=== PATIENT | female | born 1965 | race Caucasian/White ===

== ENCOUNTER 2016-12-22 14:07 | Inpatient (IN) | payer BC, OTHER ==
--- NOTE | ~2016-12-22 | EKG ---
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 : 1965 Requested By: Andrews Auguste Order Number: [id number] MD: Andrews Auguste Measurements Intervals [place] Rate: 70 P: 51 MS: 158 QRS: 7 QRSD: 104 T: 30 QT: 406 QTc: 439 Interpretive Statements Sinus rhythm Probable left ventricular hypertrophy Compared to ECG 05/14/2016 14:42:30 T-wave abnormality no longer present Electronically Signed On 12-23-2016 9:26:44 CDT by Andrews Auguste [email or web address] <ELECTRONICALLY SIGNED> By: Andrews Auguste MD, [facility] 12/23/16 0926 1645 Andrews Auguste MD, [facility] /EPI
--- NOTE | ~2016-12-22 | HC ---
[facility] [place] [address] CONSULTATION Name: LORRIE MACK Room #: 315-P [facility] IN M.R.#: [id number] Admission: 12/22/16 Attend Phys: Sanju Tracy DO Discharge: Date of : 67 Report #: [id number] THIS REPORT FOR: //name// CC: Sanju Ma REASON FOR CONSULTATION: Bright red blood per rectum, hematuria. HISTORY OF PRESENT ILLNESS: The patient is a 51-year-old woman with a history of remote pulmonary vein isolation for paroxysmal atrial fibrillation. She has a history of a stroke earlier in the year. She has been maintained on Eliquis. About 10 days ago, she noticed blood in her urine. She was empirically placed on antibiotics for urinary tract infection. This symptom became much more prominent and she was seen in the Emergency Department on Friday where a CT scan was performed. This demonstrated no acute process in the abdomen or pelvis. Her last dose of Eliquis was yesterday morning. Today, she experienced bright red blood per rectum. She also described some tarry stools. She reports an upper endoscopy earlier in the year when she underwent hiatal hernia and gastric sleeve surgery. This was unremarkable. Her last colonoscopy was several years ago at which time a polyp was removed. PAST MEDICAL HISTORY: Medical records have been reviewed and include a history of a stroke; diabetes, diet controlled; an ablation at [facility] in 2014; cholecystectomy; asthma. MEDICATIONS: Include Benazepril 10 mg daily, Prozac 20 mg daily and Singulair. ALLERGIES: She is allergic to PENICILLIN, CONTRAST, IODINE, LEVAQUIN, and ATORVASTATIN. SOCIAL HISTORY: She is , nonsmoker. FAMILY HISTORY: Unremarkable for premature coronary disease. REVIEW OF SYSTEMS: All systems negative except as that noted above. PHYSICAL EXAMINATION: GENERAL: This is a pleasant woman in no distress. VITAL SIGNS: Blood pressure is 124/77, heart rate is 60 and regular. She is afebrile, 5 feet 3 inches tall, 190 pounds. HEENT: There are neither xanthelasma, subcutaneous xanthomata, oral mucosa, digital cyanosis or kyphoscoliosis present. CHEST: Clear to auscultation and percussion. CARDIOVASCULAR: Regular rate and rhythm with normal S1, S2. No murmurs or rubs. ABDOMEN: Soft and nontender. There is no rebound or guarding. EXTREMITIES: Without cyanosis, clubbing or edema. Radial pulses are 2+. [facility] [address] [place] [address] CONSULTATION Name: LORRIE MACK Room #: 315-P [facility] IN [facility]#: [id number] Admission: 12/22/16 Attend Phys: Sanju Tracy DO Discharge: Date of : 67 Report #: [id number] NEUROLOGIC: She is alert with a nonfocal exam. LABORATORY DATA: Sodium is 141, potassium 3.7, creatinine 0.7. Cholesterol 230. LDL 137. White count 4.6, hemoglobin 12, hematocrit 38, platelet count 270. IMPRESSION: 1. Hematuria. 2. Bright red blood per rectum. 3. Paroxysmal atrial fibrillation with remote pulmonary vein isolation; placement of an implantable loop recorder. 4. Stroke, probably cardioembolic treated with thrombolytic therapy. 5. Hypercoagulable condition. 6. Diabetes, dietary control. 7. Hypertension. 8. CHADS-VASc score of at least 3. RECOMMENDATIONS: 1. Urologic and GI evaluations. 2. Lifelong anticoagulant therapy is recommended, although this is now on hold until the etiology of her bleeding can be isolated. Thank you for asking me to participate in her care. <ELECTRONICALLY SIGNED> By: Andrews Auguste MD, FACC 12/24/16 1636 1600 2114 Andrews Auguste MD, FACC /nt
--- NOTE | ~2016-12-22 | S ---
[facility] [place] [address] SURGICAL PATH RPT PROCEDURE Name: LORRIE MARCELO Room #: 315-P DIS IN M.R.#: [id number] Admission: 12/22/16 Date of : 67 Discharge: 12/24/16 Report #: [id number] Path Case #: [id number] PATHOLOGY REPORT COLLECTION DATE: 12/24/2016 RECEIVED DATE: 12/25/2016 SUBMITTING PHYS: Dr. Shankar Staples OTHER PHYS: Dr. aSnju Ma SPECIMEN(S) RECEIVED: A.Small bowel bx B.Gastric bx C.Proximal colon D.Distal colon * * * * * * * * * * * * FINAL DIAGNOSIS: A. Small bowel, endoscopic biopsy: - No diagnostic abnormalities present. B. Gastric mucosa, endoscopic biopsy: - Moderate reactive gastropathy. - Negative for intestinal metaplasia or atrophy. - Negative for Helicobacter pylori. C. Large intestine, proximal colon, endoscopic biopsy: - Mild to moderate active colitis (please see comment). - Negative for dysplasia or malignancy. D. Large intestine, dstal colon and rectum, endoscopic biopsy: - Focal cryptitis along with non-specific changes in one fragment (please see comment). - Negative for dysplasia or malignancy. COMMENT: Examination of the "proximal colon" biopsy tissue shows cryptitis, markedly expanded lamina propria, as well as crypt abscesses. There is surface epithelial inflammation present. There are no areas of ulceration present. There are no granulomata, viral inclusions, or parasitic organisms present. Crypt architectural abnormalities are not identified as well. Overall, findings are suggestive of focal active colitis, either of self-limited type or other etiology. The differential diagnosis includes early inflammatory bowel disease as well as diverticulitis. The distal colon and rectum biopsy tissue shows one fragment with increased lamina propria cellularity as well as cryptitis while the other fragments appear unremarkable. It is likely that the one involved fragment may be relatively proximal as opposed to the remainder fragments. Clinical correlation is suggested. [facility] [address] [place] [address] SURGICAL PATH RPT PROCEDURE Name: MEENAKALLORRIE Room #: 315-[facility] IN [facility]#: [id number] Admission: 12/22/16 Date of : 67 Discharge: 12/24/16 Report #: [id number] Path Case #: [id number] (IUV:mgr; 12/26/2016) PATHOLOGIST: Cynthia Montanez M.D. REPORT ELECTRONICALLY SIGNED BY: Cynthia Montanez M.D. DATE/TIME: 12/26/2016 15:11 * * * * * * * * * * * * GROSS PATHOLOGY: A. Received in formalin labeled "Lorrie Marcelo, small bowel biopsy," are multiple segments of hinton soft tissue measuring 0.8 cm in aggregate dimensions and ranging from 0.2 to 0.3 cm in maximum dimension. The specimen is submitted entirely in cassette A1. B. Received in formalin labeled "Lorrie Marcelo, gastric biopsy," are multiple segments of hinton soft tissue measuring 0.5 cm in aggregate dimensions and ranging from 0.1 to 0.2 cm in maximum dimension. The specimen is submitted entirely in cassette B1. C. Received in formalin labeled "Lorrie Marcelo, proximal colon, biopsy," are multiple segments of hinton soft tissue measuring 0.8 cm in aggregate dimensions and ranging from 0.1 to 0.2 cm in maximum dimension. The specimen is submitted entirely in cassette C1. D. Received in formalin labeled "Lorrie Marcelo, distal colon and rectum," are multiple segments of hinton soft tissue measuring 0.8 cm in aggregate dimensions and ranging from 0.1 to 0.3 cm in maximum dimension. The specimen is submitted entirely in cassette D1. ([facility]; 12/25/2016) CLINICAL HISTORY: Diarrhea, gastritis, rule out sprue, rule out gastritis, rule out colitis INITIAL CPT CODE(S): A; 32651 B; 41051, 10917 C; 50090 D; 41108 Professional services performed by [facility] at [facility] [address] [facility] , [place] [address] Technical services performed by [facility] at [address] [place] [address], [facility] [address] [address]. [facility] [address] [place] [address] SURGICAL PATH RPT PROCEDURE Name: LORRIE MARCELO Room #: 315-P DIS IN M.R.#: [id number] Admission: 12/22/16 Date of : 67 Discharge: 12/24/16 Report #: [id number] Path Case #: [id number] DANNI Wagner [address] PHONE: [phone] DIRECTOR: Uriah Hedrick M.D. * * * END OF REPORT * * *
[~2016-12-22 14:07] MED LIST: ALL DAY ALLERGY10 M3 PO; ASPIR 8181 MG PO; BACTRIM DS TAB1 EACH PO; BENAZEPRIL HCL10 MG PO; CALCIUM 600 +1 EAC1 PO; CARAFATE 1 GM TA1 G1 PO; ELIQUIS5 MG PO; FIORICET 50-321 EACH PO; FLAGYL500 MG PO; FLONASE 0.05%50 MCG NASAL; GLUCOPHAGE500 MG PO; HYDROCODON-ACE1 EAC8 PO; IBUPROFEN 800800 M1 PO; NASONEX17 GM INH; NIACIN 500 MG500 M1 PO; NORCO 5-325 TA1 EACH PO; OMEPRAZOLE 20 M20 M1 PO; PERCOCET 5-3251 EACH PO; PROZAC 10 MG CA10 M1 PO; PROZAC 10 MG CA10 MG PO; SINGULAIR 10 MG10 M1 PO; SORINE 80 MG TA80 M1 PO; VASCEPA1 GM PO; VITAMIN D2000 UNIT PO; VITAMIN D35000 UNI1 PO; VITAMIN E1000 UNI3 PO; VITAMIN E400 UNIT PO; ZANTAC 150MG T150 M1 PO; ZOFRAN ODT4 MG PO
[2016-12-22 15:48] LABS: ABSOLUTE NEUTROPHILS 2.8 thou/uL (1.4-8.2); BASOPHILS 0.5 % (0.0-2.0); EOSINOPHILS 1.8 % (0.0-3.0); HEMATOCRIT 38.1 % (37.0-47.0); HEMOGLOBIN 12.7 gm/dL (12.0-15.0); LYMPHOCYTES 27.5 % (24.0-44.0); MCH 27.6 pg (26.0-34.0); MCHC 33.4 g/dL (28.0-37.0); MCV 82.5 fL (80.0-100.0); MONOCYTES 10.2 % (1.0-8.0); PLATELET COUNT 270 thou/uL (150-400); RBC 4.62 mil/uL (4.20-5.00); RDW 14.6 % (10.5-14.5); WBC 4.6 thou/uL (4.0-11.0)
[2016-12-22 15:51] LABS: MANUAL DIFF NO
[2016-12-22 16:08] LABS: CALCIUM 9.8 mg/dL (8.5-10.1); CREATININE 0.9 mg/dL (0.6-1.0); POTASSIUM 3.9 mmol/L (3.5-5.1); TOTAL BILIRUBIN 0.3 mg/dL (<0.1-1.0); TOTAL PROTEIN 7.6 g/dL (6.4-8.2)
[2016-12-22 16:44] VITALS: BP 128/81
[2016-12-22 17:23] LABS: URINE BILIRUBIN NEGATIVE (Negative); URINE BLOOD TRACE (Negative); URINE COLOR YELLOW; URINE GLUCOSE-RANDOM* NEGATIVE (Negative); URINE KETONES NEGATIVE (Negative); URINE LEUKOCYTES-REFLEX NEGATIVE (Negative); URINE PROTEIN (DIPSTICK) NEGATIVE (Negative); URINE SPECIFIC GRAVITY <= 1.005 (1.003-1.035); URINE UROBILINOGEN 0.2 E.U./dl (0.2-1.0)
[2016-12-22 18:44] LABS: PROTIME 10.6 Seconds (9.3-11.4)
[2016-12-22 19:44] VITALS: BP 119/79
[2016-12-22 23:18] VITALS: BP 128/84
[2016-12-23 03:52] VITALS: BP 130/70
[2016-12-23 03:53] LABS: HEMATOCRIT 35.1 % (37.0-47.0); HEMOGLOBIN 12.1 gm/dL (12.0-15.0); MCH 28.5 pg (26.0-34.0); MCHC 34.4 g/dL (28.0-37.0); MCV 82.9 fL (80.0-100.0); RBC 4.24 mil/uL (4.20-5.00); RDW 15.2 % (10.5-14.5); WBC 5.3 thou/uL (4.0-11.0)
[2016-12-23 08:00] VITALS: BP 115/81
[2016-12-23] MEDS ORDERED: LISINOPRIL10 MG PO (09:52)
[2016-12-23 15:18] VITALS: BP 113/68
[2016-12-23 21:00] VITALS: BP 121/84
[2016-12-24 00:30] VITALS: BP 120/79
[2016-12-24 04:30] VITALS: BP 124/76
[2016-12-24 05:45] LABS: ABSOLUTE NEUTROPHILS 3.2 thou/uL (1.4-8.2); BASOPHILS 0.4 % (0.0-2.0); CALCIUM 9.4 mg/dL (8.5-10.1); CREATININE 0.8 mg/dL (0.6-1.0); EOSINOPHILS 1.4 % (0.0-3.0); HEMATOCRIT 35.5 % (37.0-47.0); LYMPHOCYTES 31.6 % (24.0-44.0); MCH 27.9 pg (26.0-34.0); MCHC 33.9 g/dL (28.0-37.0); MCV 82.3 fL (80.0-100.0); MONOCYTES 8.7 % (1.0-8.0); PLATELET COUNT 246 thou/uL (150-400); POLYS 57.9 % (36.0-66.0); POTASSIUM 3.8 mmol/L (3.5-5.1); RBC 4.31 mil/uL (4.20-5.00); RDW 14.8 % (10.5-14.5); WBC 5.5 thou/uL (4.0-11.0)
[2016-12-24 06:11] LABS: MANUAL DIFF NO
[2016-12-24 07:26] VITALS: BP 113/79
[2016-12-24 16:28] VITALS: BP 123/72
[2016-12-24 17:58] VITALS: BP 123/72
== END 2016-12-24 18:33 | disposition home or self-care (01) | DRG 378 ==
LOC: 3N 14:07
PROVIDERS: Family Medicine; Internal Medicine
PROC: 0DB88ZX Excision of Small Intestine, Via Natural or Artificial Opening Endoscopic, Diagnostic (ICD-10-PCS; principal; 2016-12-24)
PROC: 0DBE8ZX Excision of Large Intestine, Via Natural or Artificial Opening Endoscopic, Diagnostic (ICD-10-PCS; principal; 2016-12-24)
PROC: 0DB68ZX Excision of Stomach, Via Natural or Artificial Opening Endoscopic, Diagnostic (ICD-10-PCS; principal; 2016-12-24)
DX: K92.2 Gastrointestinal hemorrhage, unspecified (principal); D68.59 Other primary thrombophilia; I48.0 Paroxysmal atrial fibrillation; E11.9 Type 2 diabetes mellitus without complications; K29.70 Gastritis, unspecified, without bleeding; J45.909 Unspecified asthma, uncomplicated; I25.10 Atherosclerotic heart disease of native coronary artery without angina pectoris; I10 Essential (primary) hypertension; R31.9 Hematuria, unspecified; Z86.73 Personal history of transient ischemic attack (TIA), and cerebral infarction without residual deficits; Z87.440 Personal history of urinary (tract) infections; Z90.49 Acquired absence of other specified parts of digestive tract; Z79.01 Long term (current) use of anticoagulants; Z79.82 Long term (current) use of aspirin; Z79.899 Other long term (current) drug therapy; Z88.1 Allergy status to other antibiotic agents; Z88.8 Allergy status to other drugs, medicaments and biological substances; Z88.0 Allergy status to penicillin; Z91.041 Radiographic dye allergy status; Z82.49 Family history of ischemic heart disease and other diseases of the circulatory system; Z82.3 Family history of stroke
CPT/HCPCS: 10795; 62110; 62900; 70005

== ENCOUNTER 2017-03-24 17:14 | Emergency (ER) | payer BC, OTHER ==
[~2017-03-24] VITALS: Ht 160 cm; Wt 77.1 kg
[~2017-03-24 17:14] MED LIST changes: +ANUSOL-HC25 MG RECTAL; +BENTYL 10 MG CA10 M1 PO; +LISINOPRIL10 MG PO; +LOPERAMIDE 2 MG2 M1 PO
[2017-03-24 17:44] LABS: URINE BILIRUBIN NEGATIVE (Negative); URINE BLOOD 1+ (Negative); URINE COLOR YELLOW; URINE GLUCOSE-RANDOM* TRACE (Negative); URINE KETONES NEGATIVE (Negative); URINE LEUKOCYTES-REFLEX NEGATIVE (Negative); URINE PROTEIN (DIPSTICK) NEGATIVE (Negative); URINE SPECIFIC GRAVITY <= 1.005 (1.003-1.035); URINE UROBILINOGEN 0.2 E.U./dl (0.2-1.0)
[2017-03-24 17:54] LABS: CASTS None Seen /LPF (None Seen); SQUAMOUS 0-3 Few /LPF (0-3); URINE RBC 0-2 Rare /HPF (0-2); URINE WBC-REFLEX None Seen /HPF (0-5)
[2017-03-24 17:55] LABS: CRYSTALS None Seen /LPF (None Seen)
[2017-03-24 18:16] LABS: ABSOLUTE NEUTROPHILS 5.6 thou/uL (1.4-8.2); BASOPHILS 0.5 % (0.0-2.0); EOSINOPHILS 1.8 % (0.0-3.0); HEMATOCRIT 43.4 % (37.0-47.0); HEMOGLOBIN 14.9 gm/dL (12.0-15.0); LYMPHOCYTES 28.9 % (24.0-44.0); MCH 28.8 pg (26.0-34.0); MCHC 34.3 g/dL (28.0-37.0); MCV 83.9 fL (80.0-100.0); MONOCYTES 7.7 % (1.0-8.0); PLATELET COUNT 360 thou/uL (150-400); POLYS 61.1 % (36.0-66.0); RBC 5.17 mil/uL (4.20-5.00); RDW 14.8 % (10.5-14.5); WBC 9.1 thou/uL (4.0-11.0)
[2017-03-24 18:17] LABS: MANUAL DIFF NO
[2017-03-24 18:29] LABS: CALCIUM 9.3 mg/dL (8.5-10.1); CREATININE 0.9 mg/dL (0.6-1.0); POTASSIUM 4.1 mmol/L (3.5-5.1)
[2017-03-24 18:35] LABS: ALBUMIN 4.2 g/dL (3.4-5.0); TOTAL BILIRUBIN 0.4 mg/dL (<0.1-1.0)
[2017-03-24] MEDS ORDERED: CARAFATE 1 GM TA1 G1 PO (20:08)
[2017-03-24] MEDS ORDERED: TRAMADOL 50 MG50 MG PO (20:10)
[2017-03-24 20:40] VITALS: BP 135/80
== END 2017-03-24 20:42 | disposition home or self-care (01) ==
LOC: ER 17:14
PROVIDERS: Emergency Medicine
DX: K29.00 Acute gastritis without bleeding (principal); I10 Essential (primary) hypertension; J45.909 Unspecified asthma, uncomplicated; E11.9 Type 2 diabetes mellitus without complications; I48.91 Unspecified atrial fibrillation; Z90.49 Acquired absence of other specified parts of digestive tract; Z88.0 Allergy status to penicillin; Z88.1 Allergy status to other antibiotic agents; Z91.041 Radiographic dye allergy status; Z88.8 Allergy status to other drugs, medicaments and biological substances

== ENCOUNTER → 2017-04-23 | Outpatient (CLI) | payer BC, OTHER ==
[~2017-04-23] VITALS: Ht 160 cm; Wt 77.1 kg
[~2017-04-23] MED LIST changes: +BENAZEPRIL 10 M10 MG PO; +CLARITIN10 MG PO; +FISH OIL 1,001000 M2 PO; +PRADAXA75 MG PO; +PRILOSEC 20 MG20 MG PO; +TRAMADOL 50 MG50 MG PO; +VENTOLIN HFA 1818 GM INH
--- NOTE | ~2017-04-23 | CATHLAB ---
[facility] [address] [place] [address] INVASIVE PROCEDURE REPORT Name: LORRIE MACK [facility] [id number] Admission: 04/23/17 Attend Phys: Oren Dooley Discharge: Date of : 67 Date of Service: 04/30/17 1129 Report #: [id number] THIS REPORT FOR: //name// APPROVED REPORT Patient Details Patient Status: Out-Patient Room #: The patient is a 51 year-old female Event Personnel Oren Worrell Dispatcher Ship Pilot, Rafael Siu RN, Suni Whitlock Sandifer, David Monitor Procedures Performed Loop Recorder Removal, supervision of conscious sedation Indication Chest pain, Determination of underlying dysrhythmias Procedure Narrative There was no hematoma. After informed consent was obtained the patient was brought to the cardiac catheterization laboratory in stable condition. The proposed incision site was then prepped and draped in usual sterile manner. Was instilled with 1% lidocaine. Sedation was achieved via conscious sedation with continuous oximetric and cartographic monitoring. Percent and Demerol were he drugs chosen. The incision was then carried forth and using both sharp and blunt dissection the device was identified and delivered. The pocket was then obliterated with a absorbable knbete-fv-tekbn stitch after irrigation with antibiotic solution. The skin and subcutaneous tissues were then closed with 2 layers of locking running nonabsorbable suture and the skin was closed with a running subcuticular. Dermabond and Steri-Strips 4 x 4 OpSite were utilized. There were no complications. No significant blood loss. Intraoperative Conscious Sedation Sedation start time: 10:46 Case end Time: 11:30 Versed 4.0 mg Fluoro Time: 0.56 minutes Dose: DAP 273 cGycm2 22 mGy [facility] [place] [address] INVASIVE PROCEDURE REPORT Name: MEENAKALLORRIE Room #: REG [facility]#: [id number] Admission: 04/23/17 Attend Phys: Oren Dooley Discharge: Date of : 67 Date of Service: 04/30/17 1129 Report #: [id number] Conclusion 1. Successful extraction of implantable loop recorder Recommendations Routine post incision care <ELECTRONICALLY SIGNED> By: Oren Worrell MD 04/30/179 28 28 Oren Worrell MD /INF
[2017-04-23 08:47] VITALS: BP 127/86
[2017-04-23 09:06] LABS: HEMATOCRIT 38.6 % (37.0-47.0); HEMOGLOBIN 12.9 gm/dL (12.0-15.0); MCH 28.2 pg (26.0-34.0); MCHC 33.5 g/dL (28.0-37.0); MCV 84.3 fL (80.0-100.0); RBC 4.58 mil/uL (4.20-5.00); RDW 14.9 % (10.5-14.5); WBC 5.3 thou/uL (4.0-11.0)
[2017-04-23 09:19] LABS: PROTIME 10.7 Seconds (9.3-11.4)
== END | disposition home or self-care (01) ==
LOC: CATH
PROVIDERS: Internal Medicine
DX: I49.9 Cardiac arrhythmia, unspecified (principal); I10 Essential (primary) hypertension; J45.909 Unspecified asthma, uncomplicated; E11.9 Type 2 diabetes mellitus without complications; Z90.49 Acquired absence of other specified parts of digestive tract

== ENCOUNTER 2017-06-05 17:50 | Emergency (ER) | payer BC, OTHER ==
[~2017-06-05] VITALS: Ht 160 cm; Wt 74.8 kg
--- NOTE | ~2017-06-05 | EKG ---
[place] [address] [place] [address] ELECTROCARDIOGRAM REPORT Name: LORRIE MACK [facility] [id number] Admission: 06/05/17 Attend Phys: Discharge: 06/05/17 Date of : 67 Report #: [id number] THIS REPORT FOR: //name// [facility] ED Test Date: 2017-06-05 Test Time: 20:17:31 Pat Name: LORRIE MACK Department: Room: Gender: F Superintendent: FERNANDA : 1965 Requested By: Wai Araiza Order Number: [id number] MD: Jarek Mcneil Measurements Intervals [place] Rate: 80 P: 69 ME: 162 QRS: 15 QRSD: 105 T: 50 QT: 400 QTc: 462 Interpretive Statements Sinus rhythm Ventricular premature complex Aberrant conduction of SV complex(es) Compared to ECG 12/22/2016 16:45:03 Ventricular premature complex(es) now present Aberrant conduction of supraventricular beat(s) now present Electronically Signed On 06-05-2017 23:14:58 FENCE MAKING MACHINE OPERATOR by Jarek Mcneil [email or web address] <ELECTRONICALLY SIGNED> By: Jarek Mcneil MD 06/05/17 2314 16 16 Jarek Mcneil MD /EPI
[2017-06-05 19:05] LABS: URINE BILIRUBIN NEGATIVE (Negative); URINE BLOOD 1+ (Negative); URINE CLARITY CLEAR; URINE COLOR YELLOW; URINE GLUCOSE-RANDOM* NEGATIVE (Negative); URINE KETONES NEGATIVE (Negative); URINE LEUKOCYTES-REFLEX NEGATIVE (Negative); URINE NITRITE-REFLEX NEGATIVE (Negative); URINE PROTEIN (DIPSTICK) NEGATIVE (Negative); URINE SPECIFIC GRAVITY <= 1.005 (1.005-1.035); URINE UROBILINOGEN 0.2 E.U./dl (0.2-1.0)
[2017-06-05 19:15] LABS: CASTS None Seen /LPF (None Seen); CRYSTALS None Seen /LPF (None Seen); SQUAMOUS 0-3 Few /LPF (0-3)
[2017-06-05 19:16] LABS: BACTERIA-REFLEX None Seen /HPF (None Seen); URINE RBC 0-2 Rare /HPF (0-2); URINE WBC-REFLEX None Seen /HPF (0-5)
[2017-06-05 19:49] LABS: ABSOLUTE NEUTROPHILS 3.6 thou/uL (1.4-8.2); BASOPHILS 0.5 % (0.0-2.0); HEMOGLOBIN 13.4 gm/dL (12.0-15.0); LYMPHOCYTES 37.6 % (24.0-44.0); MCHC 34.3 g/dL (28.0-37.0); MCV 84.4 fL (80.0-100.0); MONOCYTES 6.7 % (1.0-8.0); PLATELET COUNT 284 thou/uL (150-400); POLYS 52.2 % (36.0-66.0); RBC 4.62 mil/uL (4.20-5.00); RDW 13.7 % (10.5-14.5)
[2017-06-05 20:02] LABS: ANION GAP 9 mmol/L (7-16); BUN 14 mg/dL (7-18); CALCIUM 9.9 mg/dL (8.5-10.1); CHLORIDE 103 mmol/L (98-107); CO2 30 mmol/L (21-32); CREATININE 0.9 mg/dL (0.6-1.0); GLUCOSE 131 mg/dL (74-106); POTASSIUM 3.8 mmol/L (3.5-5.1); SODIUM 142 mmol/L (136-145)
[2017-06-05 20:10] LABS: ALBUMIN 4.1 g/dL (3.4-5.0); LIPASE 234 U/L (73-393); SGOT 24 U/L (15-37); SGPT 40 U/L (30-65); TOTAL BILIRUBIN 0.4 mg/dL (<0.1-1.0); TOTAL PROTEIN 7.7 g/dL (6.4-8.2); TROPONIN-I < 0.04 ng/mL (<0.06)
[2017-06-05] MEDS ORDERED: PHENERGAN 25 MG25 M1 PO ×2 (20:25→20:42)
[2017-06-05] MEDS ORDERED: BENTYL 20 MG TA20 M1 PO (20:25)
[2017-06-05] MEDS ORDERED: CIPRO500 MG PO (20:41)
[2017-06-05] MEDS ORDERED: FLAGYL500 MG PO (20:41)
[2017-06-05] MEDS ORDERED: BENTYL 10 MG CA10 M1 PO (20:42)
[2017-06-05 21:09] VITALS: BP 126/73
== END 2017-06-05 21:11 | disposition home or self-care (01) ==
LOC: ER 17:50
PROVIDERS: Emergency Medicine
DX: R10.32 Left lower quadrant pain (principal); I10 Essential (primary) hypertension; J45.909 Unspecified asthma, uncomplicated; E11.9 Type 2 diabetes mellitus without complications; I48.91 Unspecified atrial fibrillation; Z90.49 Acquired absence of other specified parts of digestive tract; Z88.0 Allergy status to penicillin; Z91.041 Radiographic dye allergy status; Z88.1 Allergy status to other antibiotic agents; Z88.8 Allergy status to other drugs, medicaments and biological substances

== ENCOUNTER 2017-06-11 07:42 | Inpatient (IN) | payer BC, OTHER ==
[~2017-06-11] VITALS: Ht 160 cm; Wt 74.8 kg
--- NOTE | ~2017-06-11 | HC ---
[facility] [place] [address] CONSULTATION Name: MEENALORRIE BOWDEN Room #: 404-P ADM IN M.R.#: [id number] Admission: 06/11/17 Attend Phys: Bam Leong MD Discharge: Date of : 67 Report #: [id number] THIS REPORT FOR: //name// CC: Bam Clarke [facility] DATE OF SERVICE: 06/11/2017 HISTORY OF PRESENT ILLNESS: This is a 51-year-old female patient who was evaluated by me for an episode she had. She gives a history that a little more than a year ago, she had a stroke. She saw Dr. Jovel in the hospital. I reviewed those records. It looks like they could not do an MRI in this patient because she had a loop recorder, but rest of the workup was unremarkable and she did receive some TPA. She had some symptoms in the left eye as well as on the left arm. She had similar symptoms today, which were relatively mild compared to the prior symptoms. It came spontaneously without any trauma and then resolved. REVIEW OF SYSTEMS: Pretty complicated, especially the cardiac history. She said she has a history of atrial fibrillation. She underwent ablation. Then, her anticoagulation was discontinued and then she had a stroke. Subsequently, she was put back on anticoagulation and then she has to stop the anticoagulation for 2 days to have some dermatological procedure and then she had these symptoms again. These symptoms have resolved again. This was her relevant 14-point review of system and rest of the records were reviewed. PAST MEDICAL HISTORY: Positive for what has been described a stroke. FAMILY HISTORY: Negative for early age stroke. SOCIAL HISTORY: She denies the use of alcohol or tobacco. PHYSICAL EXAMINATION: Indicate she is alert. She is responsive. She can follow simple commands. She believes her speech, concentration, fund of knowledge and memory is at her baseline. Cranial nerves examination 2-12 is mostly unremarkable except for some eye features which are typical. Her strength, sensation, reflexes and tones are symmetrical. There is no carotid bruit. There is no meningeal sign. Cardiac examination presently does not appear to be showing any atrial fibrillation. No respiratory difficulty or rhonchi was noticed. She did have a CT scan of the head done which appear noncontributory. IMPRESSION: 1. Stroke-like symptoms, it is not certain they were transient ischemic attack or not. [facility] [address] [place] [address] CONSULTATION Name: LORRIE MACK Room #: 404-P [facility] IN M.R.#: [id number] Admission: 06/11/17 Attend Phys: Bam Leong MD Discharge: Date of : 67 Report #: [id number] 2. Chronic anticoagulation. We will defer to Cardiology to see how long she can stay without it. 3. She never had an MRI and I think she should have an MRI. 4. She indicated that they thought she may have a hypercoagulable disorder and I will suggest working that up at this time. 5. She had this significant dyslipidemia the last time it was checked and it may be good to repeat that. All of it was discussed in detail with the patient and more than 50 minutes of time was spent taking care of this patient today and majority of that time was spent counseling the patient and reviewing her records and imaging study and coordinating her care. Thank you very much for this referral. <ELECTRONICALLY SIGNED> By: Blake Hannah MD 06/12/17 1114 1510 2303 Blake Hannah MD /nt
[~2017-06-11 07:42] MED LIST changes: +BENTYL 20 MG TA20 M1 PO; +CIPRO500 MG PO; +PHENERGAN 25 MG25 M1 PO
[2017-06-11 08:25] VITALS: BP 153/101
[2017-06-11 08:51] LABS: ABSOLUTE NEUTROPHILS 3.9 thou/uL (1.4-8.2); BASOPHILS 0.6 % (0.0-2.0); EOSINOPHILS 2.3 % (0.0-3.0); HEMATOCRIT 40.2 % (37.0-47.0); HEMOGLOBIN 13.9 gm/dL (12.0-15.0); LYMPHOCYTES 27.1 % (24.0-44.0); MCH 29.4 pg (26.0-34.0); MCHC 34.5 g/dL (28.0-37.0); MCV 85.2 fL (80.0-100.0); MONOCYTES 8.4 % (1.0-8.0); POLYS 61.6 % (36.0-66.0); RBC 4.72 mil/uL (4.20-5.00); RDW 13.6 % (10.5-14.5); WBC 6.3 thou/uL (4.0-11.0)
[2017-06-11 08:53] LABS: PLATELET COUNT 286 thou/uL (150-400)
[2017-06-11 08:57] LABS: CALCIUM 9.8 mg/dL (8.5-10.1); POTASSIUM 3.6 mmol/L (3.5-5.1)
[2017-06-11 09:04] LABS: APTT 29.2 Seconds (24.5-32.8); PROTIME 10.7 Seconds (9.3-11.4)
[2017-06-11 09:44] LABS: URINE BILIRUBIN NEGATIVE (Negative); URINE BLOOD TRACE (Negative); URINE CLARITY CLEAR; URINE COLOR YELLOW; URINE GLUCOSE-RANDOM* NEGATIVE (Negative); URINE KETONES NEGATIVE (Negative); URINE LEUKOCYTES-REFLEX NEGATIVE (Negative); URINE NITRITE-REFLEX NEGATIVE (Negative); URINE PROTEIN (DIPSTICK) NEGATIVE (Negative); URINE SPECIFIC GRAVITY <= 1.005 (1.005-1.035); URINE UROBILINOGEN 0.2 E.U./dl (0.2-1.0)
[2017-06-11 10:51] LABS: POC CA IONIZED 4.7 mg/dL (4.5-5.3); POC CREATININE 0.9 mg/dL (0.6-1.3); POC HEMOGLOBIN 13.6 g/dL (12.0-15.0); POC POTASSIUM 3.6 mmol/L (3.5-5.1)
[2017-06-11 19:41] VITALS: BP 142/94
[2017-06-11 20:04] VITALS: BP 135/83
[2017-06-11] MEDS ORDERED: PRADAXA150 MG PO (20:07)
[2017-06-11 20:46] VITALS: BP 124/83
[2017-06-12 00:03] VITALS: BP 117/82
[2017-06-12 04:00] VITALS: BP 113/74
[2017-06-12 10:20] VITALS: BP 111/81
[2017-06-12 19:31] VITALS: BP 135/97
[2017-06-13 04:36] VITALS: BP 112/70
[2017-06-13 08:00] VITALS: BP 120/87
[2017-06-13 16:00] VITALS: BP 112/71
[2017-06-13 20:05] VITALS: BP 112/75
[2017-06-14 03:40] VITALS: BP 115/70
[2017-06-14 08:13] VITALS: BP 127/80
[2017-06-14 13:42] VITALS: BP 127/80
[2017-06-14] MEDS ORDERED: DEPAKOTE ER500 MG PO (14:41)
== END 2017-06-14 16:18 | disposition home or self-care (01) | DRG 103 ==
LOC: ER 07:42 → EROBS 10:04 → 4N 20:46
PROVIDERS: Emergency Medicine; Hospitalist
DX: G43.909 Migraine, unspecified, not intractable, without status migrainosus (principal); I10 Essential (primary) hypertension; J45.909 Unspecified asthma, uncomplicated; E11.9 Type 2 diabetes mellitus without complications; I48.91 Unspecified atrial fibrillation; Z79.899 Other long term (current) drug therapy; Z88.0 Allergy status to penicillin; Z88.8 Allergy status to other drugs, medicaments and biological substances; Z86.73 Personal history of transient ischemic attack (TIA), and cerebral infarction without residual deficits; Z90.49 Acquired absence of other specified parts of digestive tract; Z88.1 Allergy status to other antibiotic agents; Z91.041 Radiographic dye allergy status; Z79.01 Long term (current) use of anticoagulants; Z82.49 Family history of ischemic heart disease and other diseases of the circulatory system; Z82.3 Family history of stroke
CPT/HCPCS: 10790

== ENCOUNTER 2017-06-17 14:29 | Emergency (ER) | payer BC, OTHER ==
[~2017-06-17] VITALS: Ht 165.1 cm; Wt 72.6 kg
--- NOTE | ~2017-06-17 | EKG ---
[place] [address] [place] [address] ELECTROCARDIOGRAM REPORT Name: FREDERICKLORRIE ELSA Room #: REG [facility]#: [id number] Admission: 06/17/17 Attend Phys: Discharge: Date of : 67 Report #: [id number] THIS REPORT FOR: //name// [facility] ED Test Date: 2017-06-17 Test Time: 16:22:41 Pat Name: LORRIE MACK Department: Room: Gender: F Index Clerk: JATIN : 1965 Requested By: Samra Nunes Order Number: [id number] MD: Andrews Auguste Measurements Intervals [place] Rate: 70 P: 52 MD: 156 QRS: 6 QRSD: 98 T: 52 QT: 416 QTc: 449 Interpretive Statements Sinus rhythm No significant abnormality Compared to ECG 06/05/2017 20:17:31 Aberrant conduction of supraventricular beat(s) no longer present Electronically Signed On 06-17-2017 17:41:25 FINANCIAL SERVICES REP by Andrews Auguste [email or web address] <ELECTRONICALLY SIGNED> By: Andrews Auguste MD, [facility] 06/17/17 1741 1622 21 Andrews Auguste MD, FACC /EPI
[~2017-06-17 14:29] MED LIST changes: +DEPAKOTE ER500 MG PO; +PRADAXA150 MG PO
[2017-06-17 16:07] LABS: ABSOLUTE NEUTROPHILS 3.5 thou/uL (1.4-8.2); BASOPHILS 0.5 % (0.0-2.0); EOSINOPHILS 3.2 % (0.0-3.0); HEMATOCRIT 39.3 % (37.0-47.0); HEMOGLOBIN 13.1 gm/dL (12.0-15.0); LYMPHOCYTES 30.8 % (24.0-44.0); MCH 28.4 pg (26.0-34.0); MCHC 33.4 g/dL (28.0-37.0); MONOCYTES 6.9 % (1.0-8.0); PLATELET COUNT 276 thou/uL (150-400); POLYS 58.6 % (36.0-66.0); RBC 4.63 mil/uL (4.20-5.00); RDW 13.6 % (10.5-14.5); WBC 5.9 thou/uL (4.0-11.0)
[2017-06-17 16:15] LABS: ANION GAP 11 mmol/L (7-16); BUN 12 mg/dL (7-18); CALCIUM 9.6 mg/dL (8.5-10.1); CHLORIDE 107 mmol/L (98-107); CO2 25 mmol/L (21-32); CREATININE 0.8 mg/dL (0.6-1.0); GLUCOSE 119 mg/dL (74-106); POTASSIUM 3.8 mmol/L (3.5-5.1); SODIUM 143 mmol/L (136-145)
[2017-06-17 16:23] LABS: ALBUMIN 3.7 g/dL (3.4-5.0); LIPASE 298 U/L (73-393); SGOT 18 U/L (15-37); SGPT 29 U/L (30-65); TOTAL BILIRUBIN 0.2 mg/dL (<0.1-1.0); TOTAL PROTEIN 7.2 g/dL (6.4-8.2); TROPONIN-I < 0.04 ng/mL (<0.06)
[2017-06-17 17:16] LABS: URINE BILIRUBIN NEGATIVE (Negative); URINE BLOOD TRACE (Negative); URINE CLARITY CLEAR; URINE COLOR YELLOW; URINE GLUCOSE-RANDOM* NEGATIVE (Negative); URINE KETONES NEGATIVE (Negative); URINE LEUKOCYTES NEGATIVE (Negative); URINE NITRITE NEGATIVE (Negative); URINE PROTEIN (DIPSTICK) NEGATIVE (Negative); URINE UROBILINOGEN 0.2 E.U./dl (0.2-1.0)
[2017-06-17] MEDS ORDERED: TRAMADOL 50 MG50 MG PO (17:17)
[2017-06-17] MEDS ORDERED: MIRALAX17 GM PO (17:17)
[2017-06-17 18:10] VITALS: BP 112/76
== END 2017-06-17 18:14 | disposition home or self-care (01) ==
LOC: ER 14:29
PROVIDERS: Nurse Practitioner Family
DX: G43.909 Migraine, unspecified, not intractable, without status migrainosus (principal); R10.9 Unspecified abdominal pain; K59.00 Constipation, unspecified; Z88.0 Allergy status to penicillin; Z91.041 Radiographic dye allergy status; Z88.8 Allergy status to other drugs, medicaments and biological substances; Z88.1 Allergy status to other antibiotic agents

== ENCOUNTER 2017-10-07 16:43 | Emergency (ER) | payer BC, OTHER ==
[~2017-10-07] VITALS: Ht 160 cm; Wt 74.8 kg
[~2017-10-07 16:43] MED LIST changes: +MIRALAX17 GM PO
[2017-10-07] MEDS ORDERED: GABAPENTIN 100100 MG PO (17:13)
[2017-10-07] MEDS ORDERED: AMITRIPTYLINE H25 M2 PO (17:13)
[2017-10-07] MEDS ORDERED: FLEXERIL PO (17:14)
[2017-10-07] MEDS ORDERED: PROTONIX40 M1 PO (17:14)
[2017-10-07] MEDS ORDERED: PROZAC10 MG PO (17:14)
[2017-10-07 19:37] VITALS: BP 131/86
== END 2017-10-07 19:45 | disposition home or self-care (01) ==
LOC: ER 16:43
DX: G44.209 Tension-type headache, unspecified, not intractable (principal); M48.00 Spinal stenosis, site unspecified; I10 Essential (primary) hypertension; J45.909 Unspecified asthma, uncomplicated; E11.9 Type 2 diabetes mellitus without complications; Z88.0 Allergy status to penicillin; Z88.1 Allergy status to other antibiotic agents

== ENCOUNTER 2018-03-02 15:56 | Emergency (ER) | payer BC, OTHER ==
[~2018-03-02] VITALS: Ht 162.6 cm; Wt 77.1 kg
--- NOTE | ~2018-03-02 | EKG ---
[address] [address] ELECTROCARDIOGRAM REPORT Name: FREDERICKLORRIE ELSA [facility] [id number] Admission: 03/02/18 Attend Phys: Discharge: 03/02/18 Date of : 67 Report #: [id number] THIS REPORT FOR: //name// [facility] ED Test Date: 2018-03-02 Test Time: 15:57:55 Pat Name: LORRIE MACK Department: Room: Gender: F Cotton Farmworker: alexandra : 1965 Requested By: Samra Nunes Order Number: [id number] MD: Jarek Mcneil Measurements Intervals [place] Rate: 97 P: 51 [place]: 155 QRS: 7 QRSD: 96 T: 61 QT: 345 QTc: 439 Interpretive Statements Sinus rhythm Compared to ECG 06/17/2017 16:22:41 No significant changes Electronically Signed On 03-03-2018 9:44:05 CDT by Jarek Mcneil [email or web address] <ELECTRONICALLY SIGNED> By: Jarek Mcneil MD 03/03/18 0944 1557 1557 MD HAMLET Caicedo
[~2018-03-02 15:56] MED LIST changes: +AMITRIPTYLINE H25 M2 PO; +FLEXERIL PO; +GABAPENTIN 100100 MG PO; +PROTONIX40 M1 PO; +PROZAC10 MG PO
[2018-03-02] MEDS ORDERED: METFORMIN HCL500 MG PO (16:40)
[2018-03-02] MEDS ORDERED: LOTENSIN10 MG PO (16:42)
[2018-03-02] MEDS ORDERED: PROZAC20 MG PO (16:43)
[2018-03-02] MEDS ORDERED: SINGULAIR 10 MG10 M1 PO (16:44)
[2018-03-02 17:30] LABS: ABSOLUTE NEUTROPHILS 3.7 thou/uL (1.4-8.2); BASOPHILS 0.6 % (0.0-2.0); EOSINOPHILS 1.6 % (0.0-3.0); HEMATOCRIT 37.8 % (37.0-47.0); HEMOGLOBIN 13.1 gm/dL (12.0-15.0); LYMPHOCYTES 32.3 % (24.0-44.0); MCH 28.6 pg (26.0-34.0); MCHC 34.5 g/dL (28.0-37.0); MCV 82.9 fL (80.0-100.0); MONOCYTES 6.3 % (1.0-8.0); PLATELET COUNT 309 thou/uL (150-400); POLYS 59.2 % (36.0-66.0); RBC 4.56 mil/uL (4.20-5.00); RDW 13.8 % (10.5-14.5); WBC 6.2 thou/uL (4.0-11.0)
[2018-03-02 17:36] LABS: ANION GAP 9 mmol/L (7-16); BUN 7 mg/dL (7-18); CALCIUM 10.4 mg/dL (8.5-10.1); CHLORIDE 105 mmol/L (98-107); CO2 27 mmol/L (21-32); CREATININE 0.9 mg/dL (0.6-1.0); GLUCOSE 107 mg/dL (74-106); POTASSIUM 3.7 mmol/L (3.5-5.1); SODIUM 141 mmol/L (136-145)
[2018-03-02 17:45] LABS: ALBUMIN 4.3 g/dL (3.4-5.0); LIPASE 241 U/L (73-393); SGOT 20 U/L (15-37); SGPT 26 U/L (30-65); TOTAL BILIRUBIN 0.3 mg/dL (<0.1-1.0); TOTAL PROTEIN 8.1 g/dL (6.4-8.2); TROPONIN-I <0.06 ng/mL (<0.06)
[2018-03-02 18:15] LABS: URINE BILIRUBIN NEGATIVE (Negative); URINE BLOOD 1+ (Negative); URINE CLARITY CLEAR; URINE COLOR YELLOW; URINE GLUCOSE-RANDOM* NEGATIVE (Negative); URINE KETONES NEGATIVE (Negative); URINE NITRITE-REFLEX NEGATIVE (Negative); URINE PROTEIN (DIPSTICK) NEGATIVE (Negative); URINE SPECIFIC GRAVITY <= 1.005 (1.005-1.035); URINE UROBILINOGEN 0.2 E.U./dl (0.2-1.0)
[2018-03-02 18:17] LABS: URINE LEUKOCYTES-REFLEX 1+ (Negative)
[2018-03-02 18:26] LABS: CASTS None Seen /LPF (None Seen); SQUAMOUS 0-3 Few /LPF (0-3); URINE RBC 0-2 Rare /HPF (0-2); URINE WBC-REFLEX 6-15 Few /HPF (0-5)
[2018-03-02 18:27] LABS: BACTERIA-REFLEX None Seen /HPF (None Seen); CRYSTALS None Seen /LPF (None Seen)
[2018-03-02] MEDS ORDERED: ULTRAM 50MG TAB50 MG PO (19:33)
[2018-03-02] MEDS ORDERED: KEFLEX500 M1 PO (20:02)
[2018-03-02 20:53] VITALS: BP 131/88
== END 2018-03-02 20:55 | disposition home or self-care (01) ==
LOC: ER 15:56
PROVIDERS: Nurse Practitioner Family
DX: I10 Essential (primary) hypertension (principal); N39.0 Urinary tract infection, site not specified; J45.909 Unspecified asthma, uncomplicated; E11.9 Type 2 diabetes mellitus without complications; I48.91 Unspecified atrial fibrillation; Z90.49 Acquired absence of other specified parts of digestive tract; Z88.0 Allergy status to penicillin; Z91.041 Radiographic dye allergy status; Z88.1 Allergy status to other antibiotic agents; Z88.8 Allergy status to other drugs, medicaments and biological substances

== ENCOUNTER 2018-11-16 20:05 | Emergency (ER) | payer OTHER ==
[~2018-11-16] VITALS: Ht 162.6 cm; Wt 77.1 kg
[~2018-11-16 20:05] MED LIST changes: +KEFLEX500 M1 PO; +LOTENSIN10 MG PO; +METFORMIN HCL500 MG PO; +PROZAC20 MG PO; +ULTRAM 50MG TAB50 MG PO
[2018-11-16 20:20] LABS: URINE BILIRUBIN NEGATIVE (Negative); URINE BLOOD TRACE (Negative); URINE CLARITY CLEAR; URINE COLOR YELLOW; URINE GLUCOSE-RANDOM* NEGATIVE (Negative); URINE KETONES NEGATIVE (Negative); URINE LEUKOCYTES-REFLEX TRACE (Negative); URINE NITRITE-REFLEX NEGATIVE (Negative); URINE PROTEIN (DIPSTICK) NEGATIVE (Negative); URINE SPECIFIC GRAVITY <= 1.005 (1.005-1.035); URINE UROBILINOGEN 0.2 E.U./dl (0.2-1.0)
[2018-11-16 21:43] LABS: ABSOLUTE NEUTROPHILS 3.8 thou/uL (1.4-8.2); BASOPHILS 0.9 % (0.0-2.0); EOSINOPHILS 2.2 % (0.0-3.0); HEMATOCRIT 36.6 % (37.0-47.0); HEMOGLOBIN 11.7 gm/dL (12.0-15.0); LYMPHOCYTES 31.5 % (24.0-44.0); MCHC 32.1 g/dL (28.0-37.0); MONOCYTES 6.5 % (1.0-8.0); PLATELET COUNT 332 thou/uL (150-400); POLYS 58.9 % (36.0-66.0); RBC 4.69 mil/uL (4.20-5.00); RDW 14.6 % (10.5-14.5); WBC 6.5 thou/uL (4.0-11.0)
[2018-11-16 21:51] LABS: CALCIUM 9.7 mg/dL (8.5-10.1); CREATININE 0.8 mg/dL (0.6-1.0); POTASSIUM 3.9 mmol/L (3.5-5.1)
[2018-11-16 21:57] LABS: ALBUMIN 4.2 g/dL (3.4-5.0); TOTAL BILIRUBIN 0.2 mg/dL (<0.1-1.0); TOTAL PROTEIN 7.9 g/dL (6.4-8.2)
[2018-11-17] MEDS ORDERED: OXYCODONE HCL 55 MG PO (00:24)
[2018-11-17] MEDS ORDERED: SENNA-DOCUSATE1 EAC1 PO (00:24)
[2018-11-17] MEDS ORDERED: ZOFRAN ODT4 MG PO (00:24)
[2018-11-17 00:55] VITALS: BP 156/93
== END 2018-11-17 02:52 | disposition home or self-care (01) ==
LOC: ER 20:05
PROVIDERS: Emergency Medicine; Nurse Practitioner Family
DX: R10.31 Right lower quadrant pain (principal); R31.9 Hematuria, unspecified; I10 Essential (primary) hypertension; J45.909 Unspecified asthma, uncomplicated; E11.9 Type 2 diabetes mellitus without complications; I48.91 Unspecified atrial fibrillation; Z90.49 Acquired absence of other specified parts of digestive tract; Z88.0 Allergy status to penicillin; Z88.1 Allergy status to other antibiotic agents; Z88.8 Allergy status to other drugs, medicaments and biological substances; Z91.041 Radiographic dye allergy status

== ENCOUNTER → 2020-05-30 | Outpatient (CLI) | payer OTHER ==
[~2020-05-30] MED LIST changes: +OXYCODONE HCL 55 MG PO; +REQUIP XL2 MG PO; +SENNA-DOCUSATE1 EAC1 PO; +SLOW FE142 MG PO; +ZUPLENZ4 MG PO
== END ==
LOC: SJCVCIMAG 06:58
PROVIDERS: ATTEND Internal Medicine
DX: I48.0 Paroxysmal atrial fibrillation (principal); R00.0 Tachycardia, unspecified; E78.5 Hyperlipidemia, unspecified; I10 Essential (primary) hypertension; E11.9 Type 2 diabetes mellitus without complications

== ENCOUNTER → 2020-06-01 | Outpatient (CLI) | payer OTHER ==
[~2020-06-01] VITALS: Ht 162.6 cm; Wt 65.8 kg
[2020-06-01 07:28] LABS: HEMATOCRIT 38.2 % (37.0-47.0); HEMOGLOBIN 12.6 gm/dL (12.0-15.0); MCH 29.5 pg (26.0-34.0); MCHC 33.1 g/dL (28.0-37.0); MCV 89.2 fL (80.0-100.0); RBC 4.28 mil/uL (4.20-5.00); RDW 14.4 % (10.5-14.5); WBC 8.6 thou/uL (4.0-11.0)
[2020-06-01 07:39] VITALS: BP 120/61
[2020-06-01 07:52] LABS: CALCIUM 9.8 mg/dL (8.5-10.1); CREATININE 0.8 mg/dL (0.6-1.0); POTASSIUM 4.2 mmol/L (3.5-5.1)
--- NOTE | 2020-06-05 14:04 | CATHLAB ---
[facility] [place] [address] INVASIVE PROCEDURE REPORT Name: LORRIE MACK Room #: REG [facility]#: [id number] Admission: 06/01/20 Attend Phys: Oren Worrell Discharge: Date of : 67 Report #: [id number] THIS REPORT FOR: cc: Vince Ma MD, [place] S. MD Lammoglia, Francisco J. MD ~ APPROVED REPORT Study performed: 06/01/2020 07:13:12 Patient Details Patient Status: Out-Patient Room #: The patient is a 54 year-old female Event Personnel Oren Worrell Welfare Project Manager, Rafael Siu RN, Connie Ann RN RN, Suni Craven Monitor, Randee Page RTR Scrub Procedures Performed Art Access - R femoral artery* 55036 Initial Mod Sed Same Phys/QHP Gr5y 518284 Left Heart Cath w/or w/o Coronaries [id number] [facility] Hemostasis with Manual pressure, supervision of conscious sedation Indication Dyspnea, Positive stress test, Chest pain Procedure Narrative The patient was brought electively to the Cardiac Catheterization Laboratory and was prepped and draped in a sterile manner. The Right Groin^ was infiltrated with 1% Lidocaine subcutaneous anesthesia. A PINNACLE 4FR Sheath #[id number] sheath was inserted into the RFA^. Coronary angiography was performed using coronary diagnostic catheters. The right coronary system was accessed and visualized with a JR 4 catheter. The left coronary system was accessed and visualized with a JL 4 catheter. The left ventricle was accessed and visualized with a JR 4 catheter. Left ventricular/Aortic Valve gradient assessed via catheter pullback. Hemostasis was obtained with manual pressure following sheath removal without any complications. The patient tolerated the procedure well and there were no complications associated with the procedure. There was no hematoma. Intraoperative Conscious Sedation [facility] [place] [address] INVASIVE PROCEDURE REPORT Name: LORRIE MACK Room #: REG [facility]#: [id number] Admission: 06/01/20 Attend Phys: Oren Dooley Discharge: Date of : 67 Report #: [id number] Sedation start time: 08:33 Case end Time: 08:56 Versed 3 mg Fluoro Time: 1.37 minutes Dose: DAP 1592.00 cGycm2 207 mGy Contrast Type and Amount: Omnipaque 50 ml Coronary Angiography The patient's coronary anatomy is right dominant. Diagnostic Cath Left Main Moderate caliber normal origin bifurcates left anterior descending left circumflex is free of high-grade disease LAD Moderate caliber type II vessel which courses in the anterior interventricular sulcus towards the apex. Rapidly tapers in the distal third to a string-like vessel. It is quite tortuous in its course. It does give rise to diagonal septal branches. No high-grade lesions are noted proximal to this rapid tapering Diagonal 1 Small caliber and significant length vessel is free of high-grade disease Diagonal 2 Smaller caliber and significant length vessel free of high-grade disease Circumflex Moderate caliber nondominant vessel coursing AV groove. Gives rise to a moderate first marginal branch which courses along the lateral aspect of the heart and terminates a bifurcating vessel free of high-grade disease. The circumflex proper then continues as a small caliber vessel posteriorly where it terminates in the posterior aspect element OM1 Moderate caliber bifurcating vessel free of high-grade disease Right Coronary Large caliber dominant vessel of normal origin proceeds in the AV groove to the acute margin. Right atrial and right ventricular small branches were arising in this section. The vessel and continues posteriorly to the crux of the heart gives rise to a moderate caliber posterior descending artery and terminates up moderate posterior wall branch. No significant lesion or plaques are identified R PDA Moderate caliber vessel coursing the posterior interventricular sulcus tortuous in its course free of high-grade disease Left Ventriculography Left Ventriculography was not performed. [address] [address] INVASIVE PROCEDURE REPORT Name: LORRIE MACK Room #: REG M..#: [id number] Admission: 06/01/20 Attend Phys: Oren Dooley Discharge: Date of : 67 Report #: [id number] Hemodynamics The aortic pressure is 136/85 mmHg with a mean of 109 mmHg. The left ventricular pressure is 143/8 mmHg with a mean of mmHg. The left ventricular end diastolic pressure is 18 mmHg. Conclusion 1. Minimal coronary plaquing with rapid tapering of the distal left anterior descending artery which may be a normal variant or distal disease 2. Normal hemodynamics Recommendations Cardiac Risk Reduction Program Medical Therapy <ELECTRONICALLY SIGNED> By: Oren Worrell MD 06/05/20 1403 1403 1403 Oren Worrell MD /INF
== END | disposition home or self-care (01) ==
LOC: CATH 06:31
PROVIDERS: ATTEND Internal Medicine
DX: R07.9 Chest pain, unspecified (principal); I25.10 Atherosclerotic heart disease of native coronary artery without angina pectoris; R94.39 Abnormal result of other cardiovascular function study; R06.00 Dyspnea, unspecified; I10 Essential (primary) hypertension; E11.9 Type 2 diabetes mellitus without complications; I48.91 Unspecified atrial fibrillation; J45.909 Unspecified asthma, uncomplicated; Z98.890 Other specified postprocedural states; Z79.899 Other long term (current) drug therapy; Z90.49 Acquired absence of other specified parts of digestive tract; Z88.8 Allergy status to other drugs, medicaments and biological substances; Z91.041 Radiographic dye allergy status

== ENCOUNTER 2020-06-14 17:50 | Emergency (ER) | payer OTHER ==
[~2020-06-14] VITALS: Ht 162.6 cm; Wt 65.8 kg
[2020-06-14] MEDS ORDERED: PROZAC20 MG PO (18:13)
[2020-06-14] MEDS ORDERED: OMEPRAZOLE 20 M20 M1 PO (18:14)
[2020-06-14 18:28] LABS: BASOPHILS 0.4 % (0.0-2.0); EOSINOPHILS 1.7 % (0.0-3.0); HEMATOCRIT 39.7 % (37.0-47.0); LYMPHOCYTES 23.7 % (24.0-44.0); MCH 29.8 pg (26.0-34.0); MCHC 32.9 g/dL (28.0-37.0); MCV 90.7 fL (80.0-100.0); PLATELET COUNT 327 thou/uL (150-400); POLYS 67.2 % (36.0-66.0); RBC 4.37 mil/uL (4.20-5.00); RDW 14.8 % (10.5-14.5); WBC 7.5 thou/uL (4.0-11.0)
[2020-06-14 18:40] LABS: URINE BILIRUBIN NEGATIVE (Negative); URINE BLOOD TRACE (Negative); URINE CLARITY CLEAR; URINE COLOR YELLOW; URINE GLUCOSE-RANDOM* TRACE (Negative); URINE KETONES NEGATIVE (Negative); URINE LEUKOCYTES-REFLEX TRACE (Negative); URINE NITRITE-REFLEX NEGATIVE (Negative); URINE PROTEIN (DIPSTICK) NEGATIVE (Negative); URINE SPECIFIC GRAVITY <= 1.005 (1.005-1.035); URINE UROBILINOGEN 0.2 E.U./dl (0.2-1.0)
[2020-06-14 18:43] LABS: ANION GAP 10 mmol/L (7-16); BUN 11 mg/dL (7-18); CALCIUM 9.6 mg/dL (8.5-10.1); CHLORIDE 103 mmol/L (98-107); CO2 29 mmol/L (21-32); GLUCOSE 90 mg/dL (74-106); POTASSIUM 3.5 mmol/L (3.5-5.1); SODIUM 142 mmol/L (136-145)
[2020-06-14 18:51] LABS: TROPONIN-I <0.06 ng/mL (<0.06)
[2020-06-14] MEDS ORDERED: ONDANSETRON HCL4 M2 PO (20:13)
[2020-06-14 20:20] VITALS: BP 130/77
--- NOTE | 2020-06-15 07:18 | EKG ---
[place] [address] [facility] [place] [address] ELECTROCARDIOGRAM REPORT Name: LORRIE MACK [facility] [id number] Admission: 06/14/20 Attend Phys: Discharge: 06/14/20 Date of : 67 Report #: [id number] [facility] ED Test Date: 2020-06-14 Test Time: 17:56:50 Pat Name: LORRIE MACK Department: Room: Gender: F Atmospheric Drier Tender: MACHO : 1965 Requested By: Biju Bazzi Order Number: [id number] MD: Mike Bella Measurements Intervals [place] Rate: 104 P: 74 DC: 189 QRS: 43 QRSD: 95 T: 66 QT: 343 QTc: 452 Interpretive Statements Sinus tachycardia Probable left atrial enlargement Compared to ECG 03/02/2018 15:57:55 Sinus rhythm no longer present Electronically Signed On 06-15-2020 7:18:31 LABEL DRIER by Mike Bella [email or web address] <ELECTRONICALLY SIGNED> By: Mike Bella MD, [facility] 06/15/20 0718 1756 1756 Mike Bella MD, FACC /EPI
== END 2020-06-14 20:22 | disposition home or self-care (01) ==
LOC: ER 17:50
PROVIDERS: Nurse Practitioner
DX: R11.2 Nausea with vomiting, unspecified (principal); R00.0 Tachycardia, unspecified; R10.11 Right upper quadrant pain; R10.13 Epigastric pain; I10 Essential (primary) hypertension; J45.909 Unspecified asthma, uncomplicated; E11.9 Type 2 diabetes mellitus without complications; Z88.0 Allergy status to penicillin; Z91.041 Radiographic dye allergy status; Z88.6 Allergy status to analgesic agent; Z88.1 Allergy status to other antibiotic agents; Z79.899 Other long term (current) drug therapy; Z86.73 Personal history of transient ischemic attack (TIA), and cerebral infarction without residual deficits